=== PATIENT | female | born 1945 | race Caucasian/White ===

== ENCOUNTER 2018-09-20 10:27 | Inpatient (IN) | payer OTHER ==
[~2018-09-20] VITALS: Ht 162.6 cm; Wt 104.4 kg
[2018-09-20 10:39] VITALS: Ht 162.6 cm; Wt 104.4 kg
[2018-09-20 11:22] LABS: CALCIUM 8.8 mg/dL (8.5-10.1); CARBON DIOXIDE 25.8 mmol/L (21-32); CHLORIDE SERUM 110 mmol/L (98-107); CREATININE SERUM 1.3 mg/dL (0.6-1.0); GLUCOSE SERUM 99 mg/dL (74-106); POTASSIUM SERUM 4.2 mmol/L (3.5-5.1); SODIUM SERUM 144 mmol/L (136-145)
[2018-09-20 11:23] LABS: RED CELL DISTRIBUTION WIDTH 15.6 % (11.5-14.5)
[2018-09-20 11:26] LABS: PLATELET COUNT 47 x10^3mcL (130-400)
[2018-09-20 11:27] LABS: ALKALINE PHOSPHATASE 98 U/L (46-116); ALT/SGPT 20 U/L (14-59); AST/SGOT 37 U/L (15-37); BILIRUBIN TOTAL 1.3 mg/dL (0.20-1.00)
[2018-09-20 11:30] LABS: ALBUMIN 2.9 g/dL (3.4-5.0)
[2018-09-20 11:59] LABS: ATYPICAL LYMPH 8 %; BAND NEUTROPHIL 0 % (0-10); MONOCYTE 4 % (0-7); PLATELET MORPHOLOGY PLATELETS DECREASED; SEGMENTED NEUTROPHILS 52 % (37-75); rbc morphology (normal/abnorm) ABNORMAL (NORMAL)
[2018-09-20 13:00] LABS: microscopic required? NO
[2018-09-20] MEDS ORDERED: ZANAFLEX CAPSULE4 MG PO (13:01)
[2018-09-20] MEDS ORDERED: ZOLOFT50 MG PO (13:01)
[2018-09-20] MEDS ORDERED: PANTOPRAZOLE SO40 M1 PO (13:02)
[2018-09-20] MEDS ORDERED: ONDANSETRON4 M3 PO (13:02)
[2018-09-20] MEDS ORDERED: HYDROMORPHONE2 M1 PO (13:02)
[2018-09-20] MEDS ORDERED: ATORVASTATIN CA40 M1 PO (13:03)
[2018-09-20] MEDS ORDERED: METOPROLOL TART25 M1 PO (13:03)
[2018-09-20] MEDS ORDERED: TRAMADOL HCL50 MG PO (13:03)
[2018-09-20] MEDS ORDERED: LOSARTAN POTASS50 M1 PO (13:04)
[2018-09-20 13:21] LABS: UA SPECIFIC GRAVITY 1.025 (1.005-1.035); urine erythrocyte NEGATIVE (NEGATIVE)
[2018-09-20 13:34] LABS: CHOLESTEROL/HDL RATIO 2.6; MAGNESIUM 1.7 mg/dL (1.8-2.4); PHOSPHOROUS 3.7 mg/dL (2.5-4.9)
[2018-09-20 13:49] LABS: FREE T4 1.62 ng/dL (0.76-1.46); T4(THYROXINE) 9.4 ug/dL (4.7-13.3)
[2018-09-20 13:52] LABS: T3 TOTAL 1.07 ng/mL
[2018-09-20 15:11] VITALS: BP 189/83
[2018-09-20 18:08] VITALS: BP 169/79
[2018-09-20 20:47] VITALS: BP 117/63
[2018-09-21 05:20] VITALS: BP 160/61
[2018-09-21 06:55] LABS: CALCIUM 8.4 mg/dL (8.5-10.1); CARBON DIOXIDE 25.5 mmol/L (21-32); CHLORIDE SERUM 107 mmol/L (98-107); CREATININE SERUM 1.3 mg/dL (0.6-1.0); GLUCOSE SERUM 113 mg/dL (74-106); SODIUM SERUM 140 mmol/L (136-145)
[2018-09-21 07:15] LABS: RED CELL DISTRIBUTION WIDTH 15.4 % (11.5-14.5)
[2018-09-21 08:56] VITALS: BP 147/62
[2018-09-21 11:46] LABS: ATYPICAL LYMPH 8 %; BAND NEUTROPHIL 0 % (0-10); BASOPHIL 0 % (0-2); MONOCYTE 5 % (0-7); SEGMENTED NEUTROPHILS 81 % (37-75)
[2018-09-21 11:47] LABS: PLATELET MORPHOLOGY PLATELETS DECREASED; rbc morphology (normal/abnorm) ABNORMAL (NORMAL)
[2018-09-21 12:30] LABS: PLATELET COUNT 41 x10^3mcL (130-400)
[2018-09-21 13:30] VITALS: BP 145/57
[2018-09-21 19:28] VITALS: BP 133/67
[2018-09-21 19:39] VITALS: BP 154/62
[2018-09-22 04:37] VITALS: BP 149/61
[2018-09-22 06:28] LABS: BASOPHIL % 0.2 % (0-2)
[2018-09-22 06:56] LABS: CALCIUM 8.3 mg/dL (8.5-10.1); CARBON DIOXIDE 27.3 mmol/L (21-32); CHLORIDE SERUM 106 mmol/L (98-107); CREATININE SERUM 1.2 mg/dL (0.6-1.0); GLUCOSE SERUM 142 mg/dL (74-106); MAGNESIUM 1.7 mg/dL (1.8-2.4); PHOSPHOROUS 3.5 mg/dL (2.5-4.9); POTASSIUM SERUM 3.8 mmol/L (3.5-5.1); SODIUM SERUM 138 mmol/L (136-145)
[2018-09-22 07:11] LABS: RED CELL DISTRIBUTION WIDTH 15.7 % (11.5-14.5)
[2018-09-22 08:42] LABS: PLATELET COUNT 42 x10^3mcL (130-400)
[2018-09-22 10:43] VITALS: BP 163/63
[2018-09-22] MEDS ORDERED: ISOSORBIDE MONO30 MG PO (14:16)
[2018-09-22 14:39] VITALS: BP 162/66
[2018-09-22 15:50] VITALS: BP 162/66
== END 2018-09-22 16:54 | disposition home health service (06) | DRG 302 ==
LOC: ED 10:27 → DU 12:04
PROVIDERS: Emergency Medicine; ADMIT Family Medicine
DX: I25.10 Atherosclerotic heart disease of native coronary artery without angina pectoris (principal); N17.0 Acute kidney failure with tubular necrosis; E43 Unspecified severe protein-calorie malnutrition; D69.3 Immune thrombocytopenic purpura; D68.69 Other thrombophilia; E44.0 Moderate protein-calorie malnutrition; E11.42 Type 2 diabetes mellitus with diabetic polyneuropathy; I16.0 Hypertensive urgency; E83.42 Hypomagnesemia; E05.90 Thyrotoxicosis, unspecified without thyrotoxic crisis or storm; I25.2 Old myocardial infarction; Z68.39 Body mass index [BMI] 39.0-39.9, adult; Z95.5 Presence of coronary angioplasty implant and graft; Z86.718 Personal history of other venous thrombosis and embolism
CPT/HCPCS: 82962; 83880; 84439; 90658; 97112-GP; 97116-GP; J2270; J3490; Q0092